=== PATIENT | female | born 1975 | race Caucasian/White ===

== ENCOUNTER 2017-09-10 09:31 | Outpatient (RCR) | payer BC ==
[2006-11-18 07:50] VITALS: PULSE 82; TEMP 98.4
[~2017-09-10 09:31] MED LIST: BUPROPRION; MECLIZINE25 MG PO; MOTRIN800 MG PO; NO HOME MEDICATIONS; NORCO 325 MG-51 TAB PO; PERCOCET 325 MG1 TA2 PO; PRENATAL VITAMI1 TA5 PO; PRENATAL1 TA1 PO
[2017-10-20] MEDS ORDERED: TYLENOL 500MG500 MG PO (08:20)
[2017-10-20] MEDS ORDERED: WELLBUTRIN XL150 MG PO (08:20)
[2017-10-20] MEDS ORDERED: VITAMIND3 5000 PO (08:23)
[2017-10-20] MEDS ORDERED: ADVIL200 MG PO (08:24)
[2017-10-20] MEDS ORDERED: ADIPEX-P37.5 MG PO (08:25)
[2017-10-20] MEDS ORDERED: FLEXERIL 1010 MG/TAB PO (08:26)
[2017-10-20] MEDS ORDERED: TOPAMAX50 MG PO (08:26)
[2017-10-20] MEDS ORDERED: NSAID PO (08:27)
[2017-10-20] MEDS ORDERED: ZORVOLEX18 MG PO (08:38)
== END 2017-12-09 ==
LOC: WSPT
DX: Z01.89 Encounter for other specified special examinations (principal)

== ENCOUNTER 2017-10-20 07:35 | Outpatient (CLI) | payer BC ==
[~2017-10-20] VITALS: Ht 167.6 cm; Wt 81.8 kg
[2017-10-20] MEDS ORDERED: WELLBUTRIN XL150 MG PO (08:20)
[2017-10-20] MEDS ORDERED: TYLENOL 500MG500 MG PO (08:20)
[2017-10-20] MEDS ORDERED: VITAMIND3 5000 PO (08:23)
[2017-10-20] MEDS ORDERED: ADVIL200 MG PO (08:24)
[2017-10-20] MEDS ORDERED: ADIPEX-P37.5 MG PO (08:25)
[2017-10-20] MEDS ORDERED: TOPAMAX50 MG PO (08:26)
[2017-10-20] MEDS ORDERED: FLEXERIL 1010 MG/TAB PO (08:26)
[2017-10-20] MEDS ORDERED: NSAID PO (08:27)
[2017-10-20] MEDS ORDERED: ZORVOLEX18 MG PO (08:38)
[2017-10-20 08:40] VITALS: BP 115/73; PULSE 91; TEMP 97.7
[2017-10-20 10:40] VITALS: BP 114/81; PULSE 95
== END 2017-10-20 11:46 | disposition home or self-care (01) ==
LOC: COL.CAR 07:35
DX: R42 Dizziness and giddiness (principal); R51 Headache; R20.0 Anesthesia of skin; R41.3 Other amnesia; Z90.49 Acquired absence of other specified parts of digestive tract; Z98.84 Bariatric surgery status

== ENCOUNTER 2017-11-13 15:30 | Outpatient (RCR) | payer BC ==
[2006-11-18 07:50] VITALS: PULSE 82; TEMP 98.4
[~2017-11-13 15:30] MED LIST changes: +ADIPEX-P37.5 MG PO; +ADVIL200 MG PO; +FLEXERIL 1010 MG/TAB PO; +NSAID PO; +TOPAMAX50 MG PO; +TYLENOL 500MG500 MG PO; +VITAMIND3 5000 PO; +WELLBUTRIN XL150 MG PO; +ZORVOLEX18 MG PO
== END 2017-11-13 16:43 | disposition home or self-care (01) ==
LOC: WSPT 15:30
DX: Q07.00 Arnold-Chiari syndrome without spina bifida or hydrocephalus (principal)

== ENCOUNTER → 2018-08-20 | Outpatient (CLI) | payer BC ==
[2006-11-18 07:50] VITALS: TEMP 98.4
== END ==
LOC: COL.RAD 07:30
DX: G93.5 Compression of brain (principal); G43.709 Chronic migraine without aura, not intractable, without status migrainosus; M54.2 Cervicalgia; Z98.890 Other specified postprocedural states
CPT/HCPCS: A9585

== ENCOUNTER 2019-01-22 09:00 | Outpatient (RCR) | payer BC, OTHER ==
[2006-11-18 07:50] VITALS: TEMP 98.4
== END 2019-02-16 15:34 | disposition home or self-care (01) ==
LOC: WSPT 09:00
DX: M54.2 Cervicalgia (principal)

== ENCOUNTER → 2022-10-03 | Outpatient (CLI) | payer BC ==
[2006-11-18 07:50] VITALS: TEMP 98.4
== END ==
LOC: COL.RAD 07:19
DX: G43.709 Chronic migraine without aura, not intractable, without status migrainosus (principal); G95.0 Syringomyelia and syringobulbia; R11.11 Vomiting without nausea; Z86.69 Personal history of other diseases of the nervous system and sense organs; Z98.890 Other specified postprocedural states; G93.5 Compression of brain; J34.9 Unspecified disorder of nose and nasal sinuses
CPT/HCPCS: A9575